=== PATIENT | male | born 1965 | race Caucasian/White ===

== ENCOUNTER 2024-03-27 12:11 | Emergency (ER) | payer SELFPAY ==
[~2024-03-27] VITALS: Ht 167.6 cm; Wt 76.4 kg
[2024-03-27] MEDS ORDERED: Albuterol/Ipratropium 3 MG-0.5 MG/3 ML Neb Soln IH ONE (12:45)
[2024-03-27] MEDS ORDERED: Azithromycin 250 MG TAB PO ONE (12:45)
[2024-03-27] MEDS ORDERED: predniSONE 20 MG TAB PO ONE (12:45)
[2024-03-27 12:55] LABS: BASO # 0.01 K/mm3 (0.02-0.10); EOS # 0.34 K/mm3 (0.04-0.40); EOS % 4.9 % (0.0-4.0); HEMATOCRIT 42.1 % (42.0-52.0); HEMOGLOBIN 13.7 g/dL (13.5-18.0); LYMPH# 1.04 K/mm3 (1.50-4.00); MEAN CELL VOLUME 89 fl (78-100); MEAN CORPUSCULAR HEMOGLOBIN 29 pg (27-31); MEAN CORPUSCULAR HGB CONC 33 g/dL (33-37); MEAN PLATELET VOLUME 8.7 fl (7.4-10.4); MONO # 0.62 K/mm3 (0.20-0.80); NEU # 4.85 K/mm3 (1.40-6.50); PLATELET COUNT 240 K/mm3 (130-400); RED BLOOD COUNT 4.72 M/mm3 (4.20-5.60); RED CELL DISTRIBUTION WIDTH 14.4 % (11.5-14.5); WHITE BLOOD COUNT 6.9 K/mm3 (4.8-10.8)
[2024-03-27 13:06] LABS: ALBUMIN 4.4 g/dL (3.5-5.0)
[2024-03-27 13:07] LABS: CALCIUM 9.2 mg/dL (8.3-10.5)
[2024-03-27 13:09] LABS: TOTAL PROTEIN 7.4 g/dL (6.4-8.3)
[2024-03-27 13:10] LABS: TOTAL BILIRUBIN 0.8 mg/dL (0.2-1.2)
[2024-03-27] MEDS ORDERED: ZITHROMAX Z PA250 MG PO (13:23)
[2024-03-27] MEDS ORDERED: NEB (13:23)
[2024-03-27] MEDS ORDERED: PREDNISONE10 MG PO (13:23)
[2024-03-27] MEDS ORDERED: IPRATROPIUM BROM3 M1 IH (13:23)
[2024-03-27 13:45] VITALS: BP 116/72
== END 2024-03-27 14:00 | disposition home or self-care (01) ==
LOC: ED 12:11
PROVIDERS: Nurse Practitioner
DX: J44.1 Chronic obstructive pulmonary disease with (acute) exacerbation (principal); J98.11 Atelectasis; Z87.891 Personal history of nicotine dependence
CPT/HCPCS: J7512